=== PATIENT | male | born 1960 | race Caucasian/White ===

== ENCOUNTER 2022-11-18 14:15 | Emergency (ER) | payer SELFPAY ==
[2022-11-18] MEDS ORDERED: Dexamethasone 10 MG/ML VIAL ONE (14:56)
[2022-11-18] MEDS ORDERED: Acetaminophen 500 MG TAB ONE (14:56)
[2022-11-18] MEDS ORDERED: Ketorolac Tromethamine 30 MG/ML VIAL ONE ×2 (14:57→14:58)
== END 2022-11-18 16:22 | disposition home or self-care (01) ==
LOC: CSHERS 14:15
DX: M54.16 Radiculopathy, lumbar region (principal); L98.9 Disorder of the skin and subcutaneous tissue, unspecified
CPT/HCPCS: 72131; 72192; 96372; J1100; J1885